=== PATIENT | male | born 1945 | race Two or more races ===

== ENCOUNTER 2024-05-18 16:56 | Inpatient (IN) | payer BC, OTHER ==
[~2024-05-18] VITALS: Ht 167.6 cm; Wt 60.8 kg
[2024-05-18] MEDS ORDERED: ZIPRASIDONE MESYLATE 20 MG/ML VIAL IM ONE (17:01)
[2024-05-18] MEDS ORDERED: WATER STERILE 10 ML MC ONE (17:02)
[2024-05-18 17:10] VITALS: BP 98/60; PULSE 88; RESP 20; TEMP 98; O2SAT 95
[2024-05-18] MEDS: ZIPRASIDONE MESYLATE 20 MG/ML VIAL IM ONE (17:23)
[2024-05-18] MEDS ORDERED: cefTRIAXone 1,000 MG VIAL ONE (17:29)
[2024-05-18 17:39] LABS: APPEARANCE,URINE CLEAR (CLEAR); BILIRUBIN,URINE NEGATIVE (NEGATIVE); BLOOD, URINE 3+ (NEGATIVE); COLOR,URINE YELLOW (YELLOW); LEUKOCYTE ESTERASE ,URINE 3+ (NEGATIVE); NITRITE, URINE NEGATIVE (NEGATIVE); PROTEIN,URINE 2+ (NEGATIVE); UGLUCOSE NEGATIVE (NEGATIVE); UROBILINOGEN,URINE 0.2 EU/dL (0.2 - 1)
[2024-05-18 17:48] LABS: BACTERIA,URINE 4+ /HPF (None Seen); SQUAMOUS EPITHELIAL CELL,UR 0-3 (FEW) /LPF (0-3 (FEW)); WBC,URINE >25 (MANY) /HPF (0-5)
[2024-05-18] MEDS: cefTRIAXone 1,000 MG in DEXT 5% MINI-BAG PLUS 50 ML IV ONE (17:48)
[2024-05-18 17:49] LABS: MUCUS,URINE 3+ /LPF (None Seen)
[2024-05-18 18:04] LABS: HEMATOCRIT 38.1 % (36-52); HEMOGLOBIN 12.7 g/dL (12.0-18.0); MEAN CORPUSCULAR HEMOGLOBIN 30 pg (27-31); MEAN CORPUSCULAR HGB CONC 33 g/dL (33-37); MEAN CORPUSCULAR VOLUME 88.7 fL (80-94); PLATELET COUNT (AUTO) 292 K/uL (140-450); RED CELL DISTRIBUTION WIDTH 15.8 % (11.6-13.7)
[2024-05-18 18:05] LABS: BASOPHILS # (AUTO) 0.1 K/uL (0.00-0.22); BASOPHILS % (AUTO) 1.3 % (0.0-2.0); EOSINOPHILS # (AUTO) 0.2 K/uL (0-0.4); EOSINOPHILS % (AUTO) 2.9 % (0.0-4.0); LYMPHOCYTES # (AUTO) 1.2 K/uL (2.0-11.5); LYMPHOCYTES % (AUTO) 20.1 % (20.5-51.1); MONOCYTES # (AUTO) 0.4 K/uL (0.8-1.0); MONOCYTES % (AUTO) 6.1 % (1.7-9.3); NEUTROPHILS # (AUTO) 4.1 K/uL (1.8-7.7); NEUTROPHILS % (AUTO) 69.6 % (42.2-75.2)
[2024-05-18 18:05] LABS: FLU A ANTIGEN negative (NEGATIVE); FLU B ANTIGEN NEGATIVE (NEGATIVE)
[2024-05-18 18:06] LABS: ALCOHOL, BLOOD < 3 mg/dL (<10); LACTIC ACID 1.9 mmol/L (0.4-2.0)
[2024-05-18 18:09] LABS: ANION GAP 12.4 (8-16); CALCIUM 8.8 mg/dL (8.5-10.1); CARBON DIOXIDE 27.3 mmol/L (21-32); CHLORIDE 102 mmol/L (98-107); CREATININE 1.4 mg/dL (0.6-1.3); GLUCOSE 144 mg/dL (74-106); POTASSIUM 3.7 mmol/L (3.5-5.1); SODIUM SERUM 138 mmol/L (136-145); UREA NITROGEN, BLOOD 20 mg/dL (7-18)
[2024-05-18 18:11] LABS: AMPHETAMINE, URINE NEGATIVE ng/ml (NEG <=1000); BARBITURATE, URINE NEGATIVE ng/ml (NEG <=200); BENZODIAZEPINE, URINE POSITIVE ng/mL (NEG <=200)
[2024-05-18 18:12] LABS: CANNABINOID, URINE NEGATIVE ng/mL (NEG <=50); COCAINE, URINE NEGATIVE ng/mL (NEG <=300); OPIATE, URINE NEGATIVE ng/mL (NEG <=2000); PHENCYCLIDINE SCREEN,URINE NEGATIVE ng/mL (NEG <=25)
[2024-05-18 18:43] LABS: TOTAL BILIRUBIN 0.2 mg/dL (0.0-1.0)
[2024-05-18 18:44] LABS: ALANINE AMINOTRANSFERASE 19 U/L (12-78); ALBUMIN 2.7 g/dL (3.4-5.0); ALKALINE PHOSPHATASE 89 U/L (50-136); ASPARTATE AMINOTRANSFERASE 10 U/L (15-37); SALICYLATE < 2.8 mg/dL (2.8-20.0)
[2024-05-18 18:45] LABS: ACETAMINOPHEN < 0.5 ug/ml (10-30)
[2024-05-18] MEDS ORDERED: ACET-2619 PO (20:07)
[2024-05-18] MEDS ORDERED: MAGN400S60 PO (20:07)
[2024-05-18] MEDS ORDERED: QUET25TA PO (20:07)
[2024-05-18] MEDS ORDERED: VALP250S20 PO (20:07)
[2024-05-18] MEDS ORDERED: DICL100G32 TP (20:07)
[2024-05-18] MEDS ORDERED: DOCU-299 PO (20:07)
[2024-05-18] MEDS ORDERED: ATEN25TA7 PO (20:07)
[2024-05-18] MEDS ORDERED: TRAM50TA3 PO (20:07)
[2024-05-18] MEDS ORDERED: TAMS0.4C96 PO (20:07)
[2024-05-18] MEDS ORDERED: SENN-46 PO (20:07)
[2024-05-18] MEDS ORDERED: SPIR50TA PO (20:07)
[2024-05-18] MEDS ORDERED: SIME80TA41 PO (20:07)
[2024-05-18] MEDS ORDERED: PROM25TA27 PO (20:07)
[2024-05-18] MEDS ORDERED: MIRABULK PO (20:07)
[2024-05-18] MEDS ORDERED: ONDA-188 PO (20:07)
[2024-05-18] MEDS ORDERED: ATOR10TA PO (20:07)
[2024-05-18] MEDS ORDERED: ASCO-549 PO (20:07)
[2024-05-18] MEDS ORDERED: ZOLP5TAB1 PO (20:07)
[2024-05-18] MEDS ORDERED: NIFE30TE5 PO (20:07)
[2024-05-18] MEDS ORDERED: QUET50TA PO (20:07)
[2024-05-18] MEDS ORDERED: HEPA500056 (20:07)
[2024-05-18] MEDS ORDERED: OSC500 PO (20:07)
[2024-05-18] MEDS ORDERED: TEMAZEPAM 15 MG CAP PO PRN (23:10)
[2024-05-18 23:40] VITALS: BP 130/73; PULSE 82; RESP 17; RESP 18; TEMP 96.9; O2SAT 95; O2SAT 97
[2024-05-19] MEDS: ZIPRASIDONE MESYLATE 20 MG/ML VIAL IM ONE (00:09)
[2024-05-19 08:00] VITALS: BP 112/70; PULSE 77; RESP 18; TEMP 97.1; O2SAT 97
[2024-05-19] MEDS: HALOPERIDOL IM 5 MG/ML VIAL IM PRN (08:21)
[2024-05-19 09:17] VITALS: RESP 19; O2SAT 99
[2024-05-19 16:00] VITALS: BP 136/83; PULSE 94; RESP 18; TEMP 97.9; O2SAT 95
[2024-05-19 20:00] VITALS: TEMP 97.6
[2024-05-20] MEDS: LORazepam 2 MG/ML VIAL IM/IVP PRN (00:41)
[2024-05-20 03:47] VITALS: BP 114/64; PULSE 64; RESP 17; TEMP 98; O2SAT 93
[2024-05-20 08:00] VITALS: BP 132/64; PULSE 61; RESP 18; TEMP 97.4; O2SAT 97
[2024-05-20] MEDS ORDERED: traMADol 50 MG TAB PO SCH (11:40)
[2024-05-20] MEDS ORDERED: PROMETHAZINE 25 MG TAB PO SCH (11:40)
[2024-05-20] MEDS ORDERED: ONDANSETRON 4 MG ODT PO PRN (11:40)
[2024-05-20] MEDS ORDERED: SPIRONOLACTONE 50 MG TAB PO SCH (11:40)
[2024-05-20] MEDS: CALCIUM CARBONATE 500 MG TAB PO SCH (12:57)
[2024-05-20] MEDS: SIMETHICONE 80 MG TAB.CHEW PO SCH (12:57)
[2024-05-20 16:00] VITALS: BP 128/71; PULSE 70; RESP 18; TEMP 98.2; O2SAT 97
[2024-05-20 20:00] VITALS: BP 133/83; PULSE 96; RESP 18; TEMP 98.5; O2SAT 96
[2024-05-20] MEDS: POLYETHYLENE GLYCOL 17 GM/PKT PO SCH (20:17)
[2024-05-20] MEDS: QUEtiapine FUMARATE 25 MG TAB PO SCH (20:18)
[2024-05-20] MEDS: SENNA 8.6 MG TAB PO SCH (20:18)
[2024-05-20] MEDS: MAGNESIUM HYDROXIDE 2400 MG/30 ML UDC PO SCH (20:18)
[2024-05-20] MEDS: ATORVASTATIN 20 MG TAB PO SCH (20:19)
[2024-05-20] MEDS: ZOLPIDEM 5 MG TAB PO SCH (20:19)
[2024-05-21 04:00] VITALS: BP 125/72; PULSE 102; RESP 18; TEMP 98.2; O2SAT 94
[2024-05-21 08:00] VITALS: BP 110/67; PULSE 85; RESP 18; RESP 19; TEMP 97.8; O2SAT 95; O2SAT 96
[2024-05-21] MEDS: NIFEdipine 30 MG TABER PO SCH (09:38)
[2024-05-21] MEDS: DOCUSATE SODIUM 250 MG GELCAP PO SCH (09:38)
[2024-05-21] MEDS: SPIRONOLACTONE 50 MG TAB PO SCH (09:39)
[2024-05-21] MEDS: TAMSULOSIN 0.4 MG CAP PO SCH (09:39)
[2024-05-21] MEDS: atenoloL 25 MG TAB PO SCH (09:39)
[2024-05-21 12:08] LABS: BASOPHILS # (AUTO) 0.1 K/uL (0.00-0.22); BASOPHILS % (AUTO) 1.2 % (0.0-2.0); EOSINOPHILS % (AUTO) 0.9 % (0.0-4.0); HEMATOCRIT 38.7 % (36-52); HEMOGLOBIN 12.9 g/dL (12.0-18.0); LYMPHOCYTES # (AUTO) 0.8 K/uL (2.0-11.5); LYMPHOCYTES % (AUTO) 15.7 % (20.5-51.1); MEAN CORPUSCULAR HEMOGLOBIN 30 pg (27-31); MEAN CORPUSCULAR HGB CONC 33 g/dL (33-37); MEAN CORPUSCULAR VOLUME 88.6 fL (80-94); MONOCYTES # (AUTO) 0.5 K/uL (0.8-1.0); MONOCYTES % (AUTO) 9.6 % (1.7-9.3); NEUTROPHILS # (AUTO) 3.9 K/uL (1.8-7.7); NEUTROPHILS % (AUTO) 72.6 % (42.2-75.2); PLATELET COUNT (AUTO) 236 K/uL (140-450); RED BLOOD CELL COUNT(AUTO) 4.37 MIL/uL (4.20-6.10); RED CELL DISTRIBUTION WIDTH 15.7 % (11.6-13.7); WHITE BLOOD COUNT (AUTO) 5.4 K/uL (4.8-10.8)
[2024-05-21 12:41] LABS: ALANINE AMINOTRANSFERASE 27 U/L (12-78); ALBUMIN 2.7 g/dL (3.4-5.0); ALKALINE PHOSPHATASE 85 U/L (50-136); ANION GAP 9.4 (8-16); ASPARTATE AMINOTRANSFERASE 16 U/L (15-37); CALCIUM 8.9 mg/dL (8.5-10.1); CARBON DIOXIDE 33.2 mmol/L (21-32); CHLORIDE 99 mmol/L (98-107); CREATININE 1.1 mg/dL (0.6-1.3); GLUCOSE 107 mg/dL (74-106); POTASSIUM 4.6 mmol/L (3.5-5.1); SODIUM SERUM 137 mmol/L (136-145); TOTAL BILIRUBIN 0.4 mg/dL (0.0-1.0); UREA NITROGEN, BLOOD 18 mg/dL (7-18)
[2024-05-21] MEDS ORDERED: FOAM DRESSING TP PRN (13:05)
[2024-05-21] MEDS ORDERED: HYDRAGUARD CREAM TP PRN (13:05)
[2024-05-21] MEDS ORDERED: THERAHONEY GEL 42.5 GM TP PRN (13:05)
[2024-05-21] MEDS: FOAM DRESSING TP SCH (15:00)
[2024-05-21 16:00] VITALS: BP 124/78; PULSE 95; RESP 18; TEMP 98.4; O2SAT 100
[2024-05-21 20:00] VITALS: RESP 18; TEMP 97.5; O2SAT 95
[2024-05-22] MEDS: HYDRAGUARD CREAM TP SCH (01:12)
[2024-05-22 04:00] VITALS: BP 106/59; PULSE 97; RESP 18; TEMP 98.1; O2SAT 95
[2024-05-22 08:00] VITALS: BP 105/58; PULSE 78; RESP 18; TEMP 97.8; TEMP 98.1; O2SAT 93
[2024-05-22] MEDS: THERAHONEY GEL 42.5 GM TP SCH (15:21)
[2024-05-22 16:00] VITALS: BP 112/67; PULSE 67; RESP 18; TEMP 98.4; O2SAT 96
[2024-05-22 20:00] VITALS: BP 110/66; PULSE 68; RESP 18; TEMP 97.6; O2SAT 93
[2024-05-23] VITALS (7 sets, daily range): BP systolic 92–117; BP diastolic 49–59; PULSE 62–73; RESP 16–18; TEMP 97.3–97.8; O2SAT 92–93
[2024-05-23] MEDS ORDERED: ROC1PM IV (12:05)
[2024-05-24 06:25] VITALS: BP 79/35; PULSE 65; RESP 16; TEMP 97.1; O2SAT 97
[2024-05-24 07:39] VITALS: PULSE 68; RESP 20; O2SAT 99
[2024-05-24 08:00] VITALS: BP 112/61; PULSE 69; RESP 16; TEMP 97.1; O2SAT 97
[2024-05-24 16:00] VITALS: BP 105/72; PULSE 70; RESP 16; TEMP 97.2; O2SAT 96
[2024-05-24 20:00] VITALS: BP 118/61; PULSE 79; RESP 17; TEMP 97.1; O2SAT 92
[2024-05-25 08:00] VITALS: BP 126/60; PULSE 60; PULSE 79; RESP 16; TEMP 96.7; O2SAT 95
[2024-05-25 16:00] VITALS: BP 96/56; PULSE 66; RESP 18; TEMP 97.7; O2SAT 95
[2024-05-25] MEDS: ACETAMINOPHEN 325 MG TAB PO PRN (18:20)
[2024-05-25 20:00] VITALS: BP 104/57; PULSE 63; RESP 17; TEMP 97; O2SAT 96
[2024-05-26 04:00] VITALS: BP 106/61; PULSE 60; RESP 17; TEMP 97.2; O2SAT 97
[2024-05-26 07:16] LABS: CALCIUM 9.2 mg/dL (8.5-10.1); CHLORIDE 101 mmol/L (98-107); CREATININE 1.1 mg/dL (0.6-1.3); GLUCOSE 95 mg/dL (74-106); SODIUM SERUM 137 mmol/L (136-145); UREA NITROGEN, BLOOD 25 mg/dL (7-18)
[2024-05-26 07:21] LABS: BASOPHILS # (AUTO) 0.1 K/uL (0.00-0.22); BASOPHILS % (AUTO) 0.9 % (0.0-2.0); EOSINOPHILS # (AUTO) 0.1 K/uL (0-0.4); EOSINOPHILS % (AUTO) 2.7 % (0.0-4.0); HEMATOCRIT 37.1 % (36-52); HEMOGLOBIN 12.8 g/dL (12.0-18.0); LYMPHOCYTES # (AUTO) 1.6 K/uL (2.0-11.5); MEAN CORPUSCULAR HEMOGLOBIN 30 pg (27-31); MEAN CORPUSCULAR HGB CONC 34 g/dL (33-37); MEAN CORPUSCULAR VOLUME 87.9 fL (80-94); MONOCYTES # (AUTO) 0.5 K/uL (0.8-1.0); MONOCYTES % (AUTO) 8.4 % (1.7-9.3); NEUTROPHILS # (AUTO) 3.4 K/uL (1.8-7.7); PLATELET COUNT (AUTO) 235 K/uL (140-450); RED BLOOD CELL COUNT(AUTO) 4.22 MIL/uL (4.20-6.10); RED CELL DISTRIBUTION WIDTH 14.7 % (11.6-13.7); WHITE BLOOD COUNT (AUTO) 5.6 K/uL (4.8-10.8)
[2024-05-26 08:00] VITALS: BP 100/65; PULSE 62; RESP 18; TEMP 97.4; O2SAT 95
[2024-05-26 16:00] VITALS: BP 111/56; PULSE 95; RESP 24; TEMP 97.8; O2SAT 95
[2024-05-26 20:00] VITALS: BP 92/59; PULSE 74; RESP 19; RESP 24; TEMP 98.9; O2SAT 98
[2024-05-27 00:30] VITALS: BP 122/88; PULSE 82; RESP 24; TEMP 97.8; O2SAT 98
[2024-05-27 04:00] VITALS: BP 123/74; PULSE 81; RESP 18; TEMP 97; O2SAT 95
[2024-05-27 08:00] VITALS: PULSE 83; RESP 19; TEMP 98
[2024-05-27 12:00] VITALS: BP 104/70; PULSE 89; RESP 17; TEMP 97.6; O2SAT 95
[2024-05-27 16:00] VITALS: BP 114/68; PULSE 72; RESP 17; TEMP 98.2; O2SAT 95
[2024-05-27 17:28] VITALS: BP 106/64; PULSE 72; RESP 19; TEMP 98.2
== END 2024-05-27 17:50 | DRG 682 ==
LOC: MED 16:56 → MTU 23:10
PROVIDERS: ADMIT Hospitalist; ATTEND Hospitalist
DX: N17.9 Acute kidney failure, unspecified (principal); G93.41 Metabolic encephalopathy; N30.00 Acute cystitis without hematuria; G91.2 (Idiopathic) normal pressure hydrocephalus; Z20.822 Contact with and (suspected) exposure to COVID-19; E11.40 Type 2 diabetes mellitus with diabetic neuropathy, unspecified; E11.22 Type 2 diabetes mellitus with diabetic chronic kidney disease; I12.9 Hypertensive chronic kidney disease with stage 1 through stage 4 chronic kidney disease, or unspecified chronic kidney disease; N18.31 Chronic kidney disease, stage 3a; F03.90 Unspecified dementia, unspecified severity, without behavioral disturbance, psychotic disturbance, mood disturbance, and anxiety; Z79.899 Other long term (current) drug therapy
CPT/HCPCS: 36415; 70450; 71045; 80048; 80053; 80076; 80305; 81001; 83605; 83880; 84484; 85025; 87040; 87081; 87086; 87186; 93005; 96365; 96372; 97112; 97163-GP; 97530; 99285; G0480; G0482; J0696; J1630; J1644; J2060; J3486; J7060; Q0092